=== PATIENT | female | born 1970 | race Caucasian/White ===

== ENCOUNTER 2017-03-30 07:46 | Day surgery (SDC) | payer OTHER ==
[~2017-03-30] VITALS: Ht 167.6 cm; Wt 64.2 kg
[~2017-03-30 07:46] MED LIST: CYCL10; HYDACE5 PO; LEVO-T150 MCG; LEVSOD75 PO; Norco 5-325 Ta1 EACH PO; PENVK500 PO; PROP10
[2017-04-01 14:35] LABS: Performing Lab SYMBIODX; Test Name TISSUE BLOCK
[2017-04-06 09:10] LABS: Result SEE PATHOTH RESULT
== END 2017-03-30 14:35 | disposition home or self-care (01) ==
LOC: ORSCSDS 07:46
PROVIDERS: Otolaryngology
DX: E06.3 Autoimmune thyroiditis (principal); E03.9 Hypothyroidism, unspecified; F17.210 Nicotine dependence, cigarettes, uncomplicated; Z79.899 Other long term (current) drug therapy
CPT/HCPCS: 84443; 88307; 88341; 88342; J1100; J1885; J2250; J2405; J2550; J2710; J3010; J7120

== ENCOUNTER → 2020-01-07 | Outpatient (CLI) | payer OTHER ==
[~2020-01-07] MED LIST changes: +AMOCLA875 PO
[2020-01-08 19:09] LABS: HPV 16 Negative (Negative); HPV 18 Positive (Negative); HPV OTHER HR TYPES Negative (Negative)
== END | disposition home or self-care (01) ==
LOC: LAB SHORT 14:41 → LAB UCHC 14:41
PROVIDERS: Student in an Organized Health Care Education/Training Program
DX: Z01.419 Encounter for gynecological examination (general) (routine) without abnormal findings (principal)
CPT/HCPCS: 87624; G0123

== ENCOUNTER 2020-01-28 10:02 | Day surgery (SDC) | payer OTHER ==
[~2020-01-28] VITALS: Ht 167.6 cm; Wt 68.3 kg
--- NOTE | 2020-01-28 10:43 | NUR ---
Ambulatory in Day Surgery History, Chart, Medications and Allergies reviewed before start of procedure.Patient confirms NPO status and agrees with scheduled surgery. Patient states colon prep results clear.Lungs clear T/O to Auscultation. Patient States Post-Procedure ride home has been arranged.
--- NOTE | 2020-01-28 10:57 | NUR ---
01/28/20 1057 Jodi Álvarez History, Chart, Medications and Allergies reviewed before start of procedure. Patient confirms NPO status and agrees with scheduled surgery. PATIENT DETERMINED TO BE ASA APPROPRIATE FOR PROPOFOL SEDATION PRIOR TO START OF PROCEDURE BY DR. LAMBERT. 3-LEAD EKG REVIEWED WITH PHYSICIAN PRIOR TO START OF PROCEDURE. MONITOR INTACT WITH CONTINUOUS PULSE OXIMETRY AND INTERMITTENT BP.
--- NOTE | 2020-01-28 12:41 | NUR ---
Patient up to Ambulate independently. Gait steady. Discharge instructions reviewed with patient. Patient verbalizes understanding. Copy given to patient to take home. Discharged via wheelchair to private car for ride home.
== END 2020-01-28 23:43 | disposition home or self-care (01) ==
LOC: ORSCMMR 10:02 → ORD 11:00 → ORSCMMR 11:00
PROVIDERS: Internal Medicine Gastroenterology
PROC: 0DBN8ZX Excision of Sigmoid Colon, Via Natural or Artificial Opening Endoscopic, Diagnostic (ICD-10-PCS; principal; 2020-01-28 11:00)
PROC: 0DB98ZX Excision of Duodenum, Via Natural or Artificial Opening Endoscopic, Diagnostic (ICD-10-PCS; principal; 2020-01-28 11:00)
PROC: 0DBM8ZX Excision of Descending Colon, Via Natural or Artificial Opening Endoscopic, Diagnostic (ICD-10-PCS; principal; 2020-01-28 11:00)
PROC: 0DB78ZX Excision of Stomach, Pylorus, Via Natural or Artificial Opening Endoscopic, Diagnostic (ICD-10-PCS; principal; 2020-01-28 11:00)
PROC: 0D758ZZ Dilation of Esophagus, Via Natural or Artificial Opening Endoscopic (ICD-10-PCS; principal; 2020-01-28 11:00)
PROC: 0DB48ZX Excision of Esophagogastric Junction, Via Natural or Artificial Opening Endoscopic, Diagnostic (ICD-10-PCS; principal; 2020-01-28 11:00)
DX: R13.14 Dysphagia, pharyngoesophageal phase (principal); Z12.11 Encounter for screening for malignant neoplasm of colon; K29.70 Gastritis, unspecified, without bleeding; B96.81 Helicobacter pylori [H. pylori] as the cause of diseases classified elsewhere; K21.9 Gastro-esophageal reflux disease without esophagitis; D12.5 Benign neoplasm of sigmoid colon; D12.4 Benign neoplasm of descending colon; K55.20 Angiodysplasia of colon without hemorrhage; K57.30 Diverticulosis of large intestine without perforation or abscess without bleeding; F17.210 Nicotine dependence, cigarettes, uncomplicated; E03.9 Hypothyroidism, unspecified; Z79.899 Other long term (current) drug therapy
CPT/HCPCS: 88305; 88342; C1726; J2250; J2704; J7120

== ENCOUNTER 2020-04-07 10:03 | Day surgery (SDC) | payer OTHER ==
[~2020-04-07] VITALS: Ht 167.6 cm; Wt 70.5 kg
[~2020-04-07 10:03] MED LIST changes: +BUPROPION HCL75 MG PO; -LEVO-T150 MCG; +LEVO-T150 MCG PO; +OMEP20ER PO
--- NOTE | 2020-04-07 10:33 | NUR ---
History, Chart, Medications and Allergies reviewed before start of procedure. Patient confirms NPO status and agrees with scheduled surgery. Patient States Post-Procedure ride home has been arranged. PTS RING IN PLACE ON R HAND, TAPED.
--- NOTE | 2020-04-07 12:22 | NUR ---
Discharge instructions reviewed with patient. Patient verbalizes understanding. Copy given to patient to take home. Patient States Post-Procedure ride home has been arranged. PT AMBULATES RESTROOOM c STEADY GAIT, ABLE TO VOID. SILVER DOLLAR AMOUNT OF BLOOD NOTED ON LEAH-PAD. PT DENIES NAUSEA. ON R/A. OTD IN NAD VIA WC, DAUGHTER OUTSIDE FOR SAFE RIDE HOME.
--- NOTE | 2020-04-08 09:38 | NUR ---
04/08/20 0938 Annabella Harrington VERIFICATIONS: EDIT CHART.
== END 2020-04-07 12:35 | disposition home or self-care (01) ==
LOC: ORSCMMR 10:03
PROVIDERS: Obstetrics & Gynecology
PROC: 0UDB7ZX Extraction of Endometrium, Via Natural or Artificial Opening, Diagnostic (ICD-10-PCS; principal; 2020-04-07 11:00)
PROC: 0UBC7ZX Excision of Cervix, Via Natural or Artificial Opening, Diagnostic (ICD-10-PCS; principal; 2020-04-07 11:00)
DX: D06.9 Carcinoma in situ of cervix, unspecified (principal); R87.810 Cervical high risk human papillomavirus (HPV) DNA test positive; E03.9 Hypothyroidism, unspecified; F41.8 Other specified anxiety disorders; Z79.899 Other long term (current) drug therapy
CPT/HCPCS: 86850; 86900; 86901; 88305; 88307; 88342; A9270; J0171; J1100; J1885; J2250; J2405; J2704; J3010; J7120

== ENCOUNTER 2020-05-12 08:17 | Day surgery (SDC) | payer OTHER ==
[~2020-05-12] VITALS: Ht 167.6 cm; Wt 72.1 kg
[2020-05-12] MEDS ORDERED: VITAMIN D310 MC4 (08:56)
--- NOTE | 2020-05-12 08:58 | NUR ---
Ambulatory in Day Surgery History, Chart, Medications and Allergies reviewed before start of procedure. Lungs clear T/O to Auscultation. Patient confirms NPO status and agrees with scheduled surgery. Pre-Op teaching done. Pt verbalizes understanding. Patient States Post-Procedure ride home has been arranged.
--- NOTE | 2020-05-12 09:30 | NUR ---
PT'S PROCEDURE DELAYED DUE TO DR. PARKER BEING CALLED TO [facility] FOR EPIDURAL.
--- NOTE | 2020-05-12 10:32 | NUR ---
05/12/20 1032 Christophe Altman SARMIENTO CATH PLACED INTRA-OP PER
[2020-05-12] MEDS ORDERED: BUPR100 PO (13:28)
[2020-05-12] MEDS ORDERED: THERA-D2000 UNIT PO (13:30)
[2020-05-12] MEDS ORDERED: LEVSOD100 PO (13:31)
--- NOTE | 2020-05-12 14:05 | NUR ---
TRANSFER FROM PACU TO [facility] PT ARRIVED TO UNIT FROM PACU AT 1300 TODAY. PT APPEARS A/OX4 WITH VSS ON RA. DENIES SOB, CP, OR DISCOMFORT. ABD INCISIONS X 3 CDI WITH STERI STRIPS IN PLACE. ORIENTATION TO ROOM AND CALL LIGHT PROVIDED. PT DENIES NEEDS AT THIS TIME. WILL CONT TO MONITOR AND ENCOURAGE AMB AT [facility]. PT CURRENTLY RESTING IN BED WITH CALL LIGHT IN REACH.
[2020-05-12] MEDS ORDERED: OXYC5 PO (17:35)
--- NOTE | 2020-05-12 17:49 | NUR ---
DISCHARGE SUMMARY PT D/C HOME TODAY VIA IND AMBULATION FROM UNIT. PT REPORTS PAIN MANAGED WITH PO MEDICATION AND REST. DENIES N/V, [facility] REGULAR DIET. IS VOIDING WITHOUT DIFFICULTY AND IS BELCHING. SCRIPTS, PERSONAL BELONGINGS, AND DISCHARGE INSTRUCTIONS PROVIDED. PT VERBALIZED UNDERSTANDING AND DENIES FURTHER CONCERNS. IVS REMOVED, WNL
== END 2020-05-12 18:00 | disposition home or self-care (01) ==
LOC: ORSCMMR 08:17 → BC 12:51
PROVIDERS: Obstetrics & Gynecology
PROC: 0UT7FZZ Resection of Bilateral Fallopian Tubes, Via Natural or Artificial Opening With Percutaneous Endoscopic Assistance (ICD-10-PCS; principal; 2020-05-12 09:30)
PROC: 0UT9FZZ Resection of Uterus, Via Natural or Artificial Opening With Percutaneous Endoscopic Assistance (ICD-10-PCS; principal; 2020-05-12 09:30)
DX: D06.9 Carcinoma in situ of cervix, unspecified (principal); E07.9 Disorder of thyroid, unspecified; K21.9 Gastro-esophageal reflux disease without esophagitis; Z79.899 Other long term (current) drug therapy; F17.210 Nicotine dependence, cigarettes, uncomplicated
CPT/HCPCS: 36415; 86850; 86900; 86901; 88307; A9270; J0171; J0461; J0690; J1100; J1885; J2250; J2405; J2704; J3010; J7120

== ENCOUNTER → 2023-03-16 | Outpatient (CLI) | payer OTHER ==
[~2023-03-16] MED LIST changes: +BUPR100 PO; +LEVSOD100 PO; +OXYC5 PO; +THERA-D2000 UNIT PO; +VITAMIN D310 MC4
[2023-03-16 14:34] LABS: BASOPHILS ABSOLUTE AUTO 0.06 K/mm3 (0.00-0.23); BASOPHILS PERCENT AUTO 1 % (0-2); EOSINOPHILS ABSOLUTE AUTO 0.15 K/mm3 (0.00-0.68); EOSINOPHILS PERCENT AUTO 2 % (0-6); Hematocrit 43.2 % (33.0-51.0); Hemoglobin 14.5 g/dL (11.5-16.0); IMMATURE GRAN ABSOLUTE AUTO 0.01 K/mm3 (0.00-0.10); IMMATURE GRAN PERCENT AUTO 0 % (0-1); LYMPHOCYTES ABSOLUTE AUTO 2.57 K/mm3 (0.84-5.20); LYMPHOCYTES PERCENT AUTO 39 % (21-46); MONOCYTES ABSOLUTE AUTO 0.41 K/mm3 (0.16-1.47); MONOCYTES PERCENT AUTO 6 % (4-13); Mean Corpuscular HGB 30.9 pg (26.0-34.0); Mean Corpuscular HGB Conc 33.6 g/dL (31.5-36.5); Mean Corpuscular Volume 92 fL (80-100); Mean Platelet Volume 10.3 fL (9.1-12.4); NEUTROPHILS ABSOLUTE AUTO 3.37 K/mm3 (1.96-9.15); NEUTROPHILS PERCENT AUTO 51 % (41-73); Platelet Count 234 K/mm3 (150-400); RDW Coefficient Variation 13.3 % (11.7-14.2); RDW Standard Deviation 45.6 fL (35.1-46.3); Red Blood Cell Count 4.69 M/mm3 (3.80-5.20); White Blood Cell Count 6.57 K/mm3 (4.00-11.30)
[2023-03-16 14:49] LABS: Alanine Aminotransfer (ALT/SGP 21 U/L (12-78); Albumin, Blood 3.8 g/dL (3.4-5.0); Albumin/Globulin Ratio 1.1 (0.8-1.8); Alk Phos 104 U/L (50-136); Anion Gap 3 mmol/L (6-16); Aspartate Aminotrans (AST/SGOT 19 U/L (12-37); Bilirubin, Total 0.5 mg/dL (0.1-1.0); Blood Urea Nitrogen 13 mg/dL (8-24); Bun/Creatinine Ratio 16.6 (12.0-20.0); CHOL/HDL RATIO 4.2; CO2, Blood 28 mmol/L (21-32); Calcium, Blood 8.9 mg/dL (8.5-10.1); Chloride, Blood 106 mmol/L (98-108); Cholesterol 246 mg/dL (50-200); Creatinine, Blood 0.78 mg/dL (0.40-1.00); Globulin, Blood 3.6 g/dL (2.2-4.0); Glomerular Filtration Rate 91 (60-); Glucose, Blood 98 mg/dL (70-99); HDL Cholesterol 58 mg/dL (>39); LDL/HDL RATIO 2.7; Low Density Lipoprotein Chol 158 mg/dL (0-110); Potassium, Blood 3.9 mmol/L (3.5-5.5); Sodium, Blood 137 mmol/L (136-145); Total Protein, Blood 7.4 g/dL (6.4-8.2); Triglycerides 151 mg/dL (30-160); Very Low Density Lipoprot Chol 30 mg/dL (6-32)
[2023-03-16 14:57] LABS: Thyroid Stimulating Hormone 0.608 uIU/mL (0.360-4.800)
[2023-03-18 22:07] LABS: HEMOGLOBIN A1C 5.7 % (4.8-5.6)
== END | disposition home or self-care (01) ==
LOC: LAB 12:42 → LAB SHORT 12:42
PROVIDERS: Family Medicine
DX: Z13.1 Encounter for screening for diabetes mellitus (principal); E78.00 Pure hypercholesterolemia, unspecified; E03.9 Hypothyroidism, unspecified
CPT/HCPCS: 80053; 80061; 84443; 85025

== ENCOUNTER 2023-07-27 06:48 | Day surgery (SDC) | payer OTHER ==
[2023-07-27] VITALS (21 sets, daily range): BP systolic 102–139; BP diastolic 64–99
[~2023-07-27] VITALS: Ht 167.6 cm; Wt 65.2 kg
[~2023-07-27 06:48] MED LIST changes: +Lactated Ringer's 1,000 ML IV SCH
--- NOTE | 2023-07-27 07:24 | NUR ---
Ambulatory in Day Surgery History, Chart, Medications and Allergies reviewed before start of procedure. Pre-Op teaching done. Pt verbalizes understanding. Patient States Post-Procedure ride home has been arranged.
[2023-07-27] MEDS ORDERED: propofoL 40 ML IV ONE (08:05)
[2023-07-27] MEDS ORDERED: Midazolam HCl 1MG / ML 2ML Vial ONE (08:05)
[2023-07-27] MEDS ORDERED: Benzocaine Oral Spray 0.5ML UD ONE (08:06)
--- NOTE | 2023-07-27 08:07 | NUR ---
07/27/23 0807 Albertina Estrada HISTORY, CHART, MEDICATIONS AND ALLERGIES REVIEWED BEFORE START OF PROCEDURE. PATIENT CONFIRMS NPO STATUS AND AGREES WITH SCHEDULED PROCEDURE. 3-LEAD EKG REVIEWED WITH PHYSICIAN PRIOR TO START OF PROCEDURE. MONITOR INTACT WITH CONTINUOUS PULSE OXIMETRY,CAPNOGRAPHY, 3-LEAD EKG, INTERMITTENT BP. SUPPLEMENTAL O2 TO BE TITRATED THROUGHOUT PROCEDURE TO MAINTAIN O2 SATURATION ABOVE 90%. PATIENT DETERMINED TO BE ASA APPROPRIATE FOR PROPOFOL SEDATION PRIOR TO START OF PROCEDURE BY DR. LAMBERT
--- NOTE | 2023-07-27 09:29 | NUR ---
DISCHARGE NOTE PT A&OX4, BREATHING RA, VSS, NO COMPLAINTS. PT TOLERATING PO FLUIDS. ABDOMEN REMAINS SOFT AND NON-TENDER. PT UP TO BATHROOM, GAIT STEADY. Discharge instructions reviewed with patient. Patient verbalizes understanding. Copy given to patient to take home. Discharged via wheelchair to private car for ride home.
== END 2023-07-27 09:30 | disposition home or self-care (01) ==
LOC: ORSCMMR 06:48 → ORD 08:00 → ORSCMMR 08:00
PROVIDERS: Internal Medicine Gastroenterology
PROC: 0DBH8ZX Excision of Cecum, Via Natural or Artificial Opening Endoscopic, Diagnostic (ICD-10-PCS; principal; 2023-07-27 08:00)
PROC: 0DB78ZX Excision of Stomach, Pylorus, Via Natural or Artificial Opening Endoscopic, Diagnostic (ICD-10-PCS; principal; 2023-07-27 08:00)
PROC: 0DB98ZX Excision of Duodenum, Via Natural or Artificial Opening Endoscopic, Diagnostic (ICD-10-PCS; principal; 2023-07-27 08:00)
DX: Z12.11 Encounter for screening for malignant neoplasm of colon (principal); Z86.010 Personal history of colon polyps; R10.13 Epigastric pain; K29.00 Acute gastritis without bleeding; D12.0 Benign neoplasm of cecum; K29.70 Gastritis, unspecified, without bleeding; K29.80 Duodenitis without bleeding; K57.30 Diverticulosis of large intestine without perforation or abscess without bleeding; F17.210 Nicotine dependence, cigarettes, uncomplicated; E03.9 Hypothyroidism, unspecified; Z79.899 Other long term (current) drug therapy
CPT/HCPCS: 88305; 88342; A9270; J2250; J2704; J7120